=== PATIENT | female | born 1930 | race Caucasian/White ===

== ENCOUNTER 2017-01-10 08:46 | Inpatient (IN) | payer MEDICARE, OTHER ==
[~2017-01-10] VITALS: Ht 152.4 cm; Wt 68.3 kg
--- NOTE | ~2017-01-10 | HP ---
PATIENT'S NAME: ANASTASIYA MERIDA [facility] [place] AGE: 86 Y [address] ROOM: [place] [address] LOCATION: [facility] [place] ADMIT DATE: 01/10/2017 History & Physical DISCHARGE DATE: FAMILY PHYSICIAN: Jaymie Umanzor MD ATTENDING PHYSICIAN: Jaymie Umanzor DATE OF SERVICE: CHIEF COMPLAINT: Bright red blood per rectum. HISTORY OF PRESENT ILLNESS: Anastasiya is an 86-year-old female who has been otherwise healthy and in the last evening she just started feel "not right." She went to bed and then got up in the middle of the night and went to the bathroom and turned on the light and saw that it was pure blood. She denies any chest pain, shortness of breath, dizziness, lightheadedness, or near-syncope. She has not had anything like this before. She denies any unintentional weight loss, loss of appetite, night sweats, or malaise. She has had a colonoscopy, but it has been at least 15 years ago. PAST MEDICAL HISTORY: Operations include cataract surgery x2, right total hip arthroplasty, left total knee arthroplasty, and a fractured left shoulder. CURRENT MEDICATIONS: 1. Benazepril 20 mg daily. 2. Hydrochlorothiazide 25 mg daily. 3. Lovastatin 40 mg daily. 4. Aspirin 325 mg daily. 5. Ranitidine 150 mg at h.s. p.r.n. ALLERGIES: AMOXICILLIN AND THEN FLUVASTATIN IS ALSO LISTED. FAMILY HISTORY: Noncontributory. SOCIAL HISTORY: Nonsmoker, nondrinker. She lives independently. Her address is [place]. 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 She eats well and is active. REVIEW OF SYSTEMS: GENERAL: Negative. PATIENT'S NAME: ANASTASIYA MERIDA [facility] [place] AGE: 86 Y [address] ROOM: [place] [address] LOCATION: [facility] [place] ADMIT DATE: 01/10/2017 History & Physical DISCHARGE DATE: FAMILY PHYSICIAN: Jaymie Umanzor MD ATTENDING PHYSICIAN: Jaymie Umanzor ENT: She wears glasses. CARDIOVASCULAR: Negative. No chest pain or shortness of breath. RESPIRATORY: Negative. GI: See HPI. : Negative. MUSCULOSKELETAL: Negative. PSYCH: Negative. DERM: Negative. NEURO: Negative. PHYSICAL EXAMINATION: GENERAL: Anastasiya is a well-developed, well-nourished, 86-year-old female. She is alert, oriented x3, coherent, and gives an excellent history. VITAL SIGNS: Stable. Her pupils are equal. Sclerae clear. NECK: Supple without masses. Oropharynx is normal. Mucous membranes are moist. HEART: Regular rate and rhythm with a grade 2/6 systolic flow murmur. LUNGS: Richards are clear throughout. ABDOMEN: Soft. No organomegaly, masses, or tenderness. EXTREMITIES: Reveal just trace peripheral edema on the left. SKIN: Intact. LABORATORY DATA: Her CBC is normal. Chemistry panel shows an elevated BUN and creatinine of 1.2. Lactate is elevated. Hemoccult is positive. ASSESSMENT: 1. Acute lower gastrointestinal bleed. 2. Hypertension. 3. Hyperlipidemia. 4. Mildly chronic kidney disease. PLANS: She is being admitted as an inpatient. We will watch her hemoglobin every 6 hours and transfuse as needed. I did discuss risks and benefits of transfusion should she need that. GI has been consulted. She is going to start her colonoscopy prep this evening and have that done tomorrow morning. Prognosis depends upon etiology. She did ask code status and she wishes to be a full code at this time. I will continue to follow her. JAYMIE UMANZOR MD PATIENT'S NAME: ANASTASIYA MERIDA [facility] [place] AGE: 86 Y [address] ROOM: [place] [address] LOCATION: [facility] [place] ADMIT DATE: 01/10/2017 History & Physical DISCHARGE DATE: FAMILY PHYSICIAN: Jaymie Umanzor MD ATTENDING PHYSICIAN: Jaymie Umanzor/noman /[id number] D: 328 T: 820 HISTORY & PHYSICAL
--- NOTE | ~2017-01-10 | DS ---
PATIENT'S NAME: ANASTASIYA MERIDA [facility] AGE: 86 Y [address] ROOM: [address] [place], [place] [address] LOCATION: [facility] [place] ADMIT DATE: 01/10/2017 Discharge Summary DISCHARGE DATE: 01/13/2017 FAMILY PHYSICIAN: Gavi Umanzor MD ATTENDING PHYSICIAN: Gavi Umanzor PRINCIPAL DIAGNOSES: 1. Acute lower gastrointestinal bleed. 2. Marked ulcerative colitis. 3. Mild anemia due to gastrointestinal bleed. 4. Hypertension. 5. Chronic renal insufficiency. SUMMARY: Anastasiya is an 86-year-old female who is admitted with an active lower GI bleed. See the H and P. Her initial hemoglobin was fine. It was followed closely every 6 hours. GI consult was performed and she underwent a colonoscopy prep the evening of 01/10/2017 and the morning of 01/11/2017 and underwent colonoscopy. This showed marked amount of inflammation, erythema, swelling, and friability along the colon. Biopsies were taken and are pending. A C. diff test was negative. 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 Calcifications in the proximal aspect of both right and left single renal arteries. 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 Also, noted was a consolidation at the left lower lung. Her hemoglobin was stable, her potassium was low after hydration, and then that was replaced orally. Her potassium at the time of dismissal is excellent. Needed to reinstitute her blood pressure meds as her blood pressure did climb throughout her hospital stay so she is back on all of her home meds. Delzicol 800 mg t.i.d. was initiated by the military pay clerk. She is feeling markedly better. She is able to eat and drink, has a good appetite, is up and around safely, and has had no further bloody stools. At this time, she is feeling much better and is ready to go home. DISMISSAL: Anastasiya is dismissed on 01/13/2017 in improved condition. Her diet will be bland. Activity will be as tolerated. She is to use a wheeled walker. Family is going to keep an extra close eye on her. DISMISSAL MEDICATIONS: 1. Delzicol 800 mg t.i.d. either 1 hour before or 2 hours after meals. 2. HydroDIURIL 25 mg daily. 3. Lotensin 20 mg daily. 4. Mevacor 20 mg daily. 5. Ranitidine 150 mg daily p.r.n. 6. We will have her avoid antiinflammatory medications and follow up with me PATIENT'S NAME: ANASTASIYA MERIDA [facility] AGE: 86 Y [address] ROOM: [place] [address] LOCATION: [facility] [place] ADMIT DATE: 01/10/2017 Discharge Summary DISCHARGE DATE: 01/13/2017 FAMILY PHYSICIAN: Gavi Umanzor MD ATTENDING PHYSICIAN: Gavi Umanzor on 01/29/[address] Cochran per his recommendations. PROGNOSIS: Good. MD ALLYSSA HI/modl /[id number] d: 01/14/17511 t: 01/15/17 0821, DISCHARGE SUMMARY
--- NOTE | ~2017-01-10 | ER ---
PATIENT'S NAME: SYD MERIDA [facility] AGE: 86 Y [address] ROOM: [place] [address] LOCATION: [facility] [place] ADMIT DATE: 01/10/2017 ER/Outpatient Report DISCHARGE DATE: FAMILY PHYSICIAN: Gavi Umanzor MD ATTENDING PHYSICIAN: Gavi Umanzor CHIEF COMPLAINT: Bright red blood per rectum. HISTORY OF PRESENT ILLNESS: The patient states that since last night, she has had several grossly bloody bowel movements that became just more blood this morning. There are no other findings for her today. She otherwise feels relatively okay. She does have a history of high blood pressure. The patient does have some diffuse abdominal discomfort centered in the lower abdomen. No other acute findings. She has not taken anything for this. She denies taking any blood thinners. The patient notes that she has not ever had a colonoscopy at the age of 86. PAST MEDICAL HISTORY: Documented on the record and reviewed by me. SOCIAL HISTORY: Documented on the record and reviewed by me. MEDICATIONS: Documented on the record and reviewed by me. ALLERGIES: DOCUMENTED ON THE RECORD AND REVIEWED BY ME. REVIEW OF SYSTEMS: All systems were reviewed and negative except as noted in the HPI. PHYSICAL EXAMINATION: VITAL SIGNS: Blood pressure 176/86, pulse is 95, respiratory rate is 20, and SpO2 is 97% on room air. GENERAL: Age-appropriate female, lying on the exam table, in no acute distress or pain. NEUROLOGIC: Awake and alert. GCS 15. No focal deficits or asymmetry. HEENT: Normocephalic, atraumatic. Eyes are PERRL. Oropharynx is clear and moist. No erythema or exudates. NECK: Supple. Trachea is midline. CHEST: Heart has a regular rate and rhythm with no obvious murmurs, but borderline tachycardia. The lungs are clear to auscultation bilaterally grossly. The patient does have a rattle on the left chest on expiration that PATIENT'S NAME: SYD MERIDA [facility] AGE: 86 Y [address] ROOM: [place] [address] LOCATION: [facility] [place] ADMIT DATE: 01/10/2017 ER/Outpatient Report DISCHARGE DATE: FAMILY PHYSICIAN: Gavi Umanzor MD ATTENDING PHYSICIAN: Noé,Gavi M is intermittent and sounds like a mucus plugging issue. BACK: Nontender to palpation throughout. No CVA tenderness. ABDOMEN: Soft, with no rebound or guarding. There is some mild tenderness diffusely along the lower abdomen, most prominent on the left side. RECTAL: Marked external hemorrhoids, with no active bleeding. The stool is scant in the rectal vault. The exam is grossly bloody. No obvious pain or masses. LABS AND X-RAYS: No imaging was obtained for this patient. Labs are notable for the following: Fecal occult blood test is positive. Blood type O positive with no antibodies. Sodium is 138, potassium 4.0, chloride is 104, CO2 is 24, BUN is 29, creatinine is 1.2, and GFR is 42. LFTs are grossly normal. WBC is 10.3, hemoglobin 15.7, and platelets of 286. INR is 1.0. Serum lactate is 2.9. IMPRESSION: Acute lower gastrointestinal bleeding. EMERGENCY DEPARTMENT COURSE: The patient was evaluated as above. She had mild azotemia with an elevated serum lactate. Her presentation is not consistent with ischemic bowel; however, she may be slightly hypovolemic. She is borderline tachycardic. She was given normal saline to help with that, which did improve her heart rate. She was also given Protonix and 2 units of blood were typed and screened for her. She remained otherwise stable in the emergency department. It was my opinion that she did not need emergent scope as she has not had any evidence of active bleeding here in the emergency department. For that reason, I will admit her to Dr. Umanzor, primary care provider, for further evaluation and treatment in the hospital. I did speak with the nurse of Dr. Cochran, hard tile setter apprentice, to make him aware of the patient, and he will need to see her at some point. All questions were answered, and the patient was taken to the floor in stable condition. MD BOB METCALF/noman /[id number] d: 01/11/17 1045 t: 03/13/17 1801, OUTPATIENT REPORT
--- NOTE | ~2017-01-10 | CON ---
PATIENT'S NAME: SYD MERIDA [facility] AGE: 86 Y [address] ROOM: [place] [address] LOCATION: [facility] [place] ADMIT DATE: 01/10/2017 Consultation DISCHARGE DATE: FAMILY PHYSICIAN: Gavi Umanzor MD ATTENDING PHYSICIAN: Gavi Umanzor DATE OF CONSULTATION: 01/10/2017 HISTORY OF PRESENT ILLNESS: This is a very pleasant, elderly lady, who was admitted through the emergency room today with the onset of bright red blood per rectum clinical dietetic technician. She said that she had several episodes of passing bright red blood and clots and subsequently brought to the emergency room where she was evaluated and admitted. She denies any prior history of lower GI bleeding. Denies any history of melena or hematemesis. Nausea or vomiting. She denies any history of anticoagulants intake. She takes 1 aspirin a day. She was feeling weak after several episodes of upper GI bleeding. However, she did not pass out. There was no associated chest pain or sweating. HOME MEDICATIONS: Include: 1. omepreazole 20 mg. 2. Hydrochlorothiazide 25 mg. 3. Lovastatin 40 mg daily which was stopped in the emergency room. PAST MEDICAL HISTORY: Significant for hypertension and hyperlipidemia. PAST SURGICAL HISTORY: She had colonoscopy in the past several years ago and was told that it was normal. Past surgical history also includes sprain in the shoulder and with a rotator cuff repair, fixation of the scapula and acromion. ALLERGIES: SHE DENIES ANY ALLERGIES TO MEDICATIONS. SOCIAL HISTORY: Denies smoking and drinking. PHYSICAL EXAMINATION: GENERAL APPEARANCE: Examination reveals an elderly lady, not in acute discomfort. VITAL SIGNS: Show her blood pressure is 145/89, temperature is 98.3 degree Fahrenheit, and pulse is 111 per minute on admission. HEENT: Head; normocephalic and atraumatic. PATIENT'S NAME: SYD MERIDA [facility] AGE: 86 Y [address] ROOM: [place] [address] LOCATION: [facility] [place] ADMIT DATE: 01/10/2017 Consultation DISCHARGE DATE: FAMILY PHYSICIAN: Gavi Umanzor MD ATTENDING PHYSICIAN: Gavi Umanzor NECK: Supple. No lymphadenopathy. CHEST: Clear to palpation, percussion, and auscultation. CARDIAC: Both heart sounds are normal. No S3. No murmur. ABDOMEN: Soft, it is nontender. There is no hepatosplenomegaly. No ascites. MUSCULOSKELETAL: She moves all extremities. All joints movements are equal bilaterally. NEUROLOGICAL: Cranial nerves 2 through 12 intact. Motor and sensory system intact. LABORATORY DATA: Her hemoglobin was 15 g on admission in the emergency room and repeated on the floor was 13.2 g, and platelets were 286,000. PT is 10.6 and INR is 1.0. Lactate was 2.9, glucose 112, BUN 29, and creatinine 1.2. LFTs were normal. ASSESSMENT: This elderly lady has lower gastrointestinal bleeding. Possibilities of which include diverticular bleeding, hemorrhoidal bleeding, and bleeding from telangiectasia. I do not think she has source from the upper gastrointestinal tract. RECOMMENDATIONS: To proceed with colonoscopy which I have planned for tomorrow. Do appropriate treatment such as cauterization of telangiectasia, polypectomy or hemorrhoidal band ligation. The risks and benefits were explained to the patient and the family and they all agree with this plan of colonoscopy tomorrow. We appreciate sharing care of this patient. MD GALLO HINSON/noman /[id number] CC: Gavi Umanzor MD d: 01/10/17 2311 t: 01/11/17 1143, CONSULTATION REPORT
[2017-01-10 09:25] LABS: BASOPHIL % 0.3 %; EOSINOPHIL % 0.3 %; IMMATURE GRANULOCYTE % 0.3 %; LYMPHOCYTE # 1.5 K/uL (0.8-4.0); LYMPHOCYTE % 14.9 %; MCH 27.4 pg (27.0-34.0); MCHC 32.6 gm/dL (32.0-36.5); MCV 84.1 fl (83.0-98.0); MONOCYTE # 0.5 K/uL (0.0-1.0); MONOCYTE % 5.1 %; MPV 8.9 fl (9.4-12.4); NEUTROPHIL # (ANC) 8.2 K/uL (1.8-7.8); NEUTROPHIL % 79.1 %; NRBC % 0 /100WBC (0-0.00); PLATELET COUNT 286 K/uL (150-450); RBC 5.47 M/uL (3.00-5.00); RDW-CV 14.3 % (11.9-14.6); WBC 10.3 K/uL (4.0-11.0)
[2017-01-10 09:37] LABS: ALBUMIN 3.9 gm/dL (3.5-5.0); CALCIUM 9.3 mg/dL (8.5-10.5); CREATININE 1.2 mg/dL (0.5-1.1); TOTAL BILIRUBIN 0.6 mg/dL (0.0-1.5); TOTAL PROTEIN 7.9 g/dL (6.0-8.4)
[2017-01-10 09:38] LABS: PROTIME 10.6 SECONDS (9.6-11.1); PTT 27 SECONDS (25-32)
--- NOTE | 2017-01-10 12:01 | NUR ---
pt is 86 y/o female admit for rectal bleeding for . Pt alert and oriented x3. Allergy to amoxicillin. Hx htn,hypercholest. Pt states she had some bright red blood after a stool last night. pt denies hemorrhoids. Resides at home with her son. Pt came through ED. Family with her. Walks with a cane.
[2017-01-10] MEDS ORDERED: LOTENSIN20 MG PO (13:21)
[2017-01-10] MEDS ORDERED: ASPIRIN325 MG PO (13:21)
[2017-01-10] MEDS ORDERED: HYDRODIURIL25 MG PO (13:21)
[2017-01-10] MEDS ORDERED: LOVASTATIN40 MG PO (13:21)
[2017-01-10] MEDS ORDERED: ACID REDUCER 1150 MG PO (13:22)
--- NOTE | 2017-01-10 16:06 | NUR ---
Significant Event: Patient is alert and oriented x3. VSS and on RA. Has had 2 bloody stools since being here. Up with 1PA and switched to the walker. Needs reminders to wait for the nurse. Bed alarm. IV to the L)wrist, fluids infusing. Dr. Umanzor to see after clinic and GI to see yet. NPO. Some of the home meds are on hold. HGB every 6 hours- next one is at 1930. When she came in her HGB was 15 and the check was 13.2 around 1330. Cooperative with cares. Denies pain or nausea.
--- NOTE | 2017-01-11 07:27 | NUR ---
SIGNIFICANT EVENT: Patient alert & oriented. SuPrep at 1800 and again at 0300. BM x8, initial 6 were bloody - last 2 were more clear. PIV to L) wrist is infusing NS at 150. NPO. 1PA walker and gaitbelt. Hypertensive and tachycardic, called MD and gave Benazepril x1. Zofran also ordered but not given. Colonoscopy scheduled for today. NPO since admission, sips with BP med per MD approval. Pleasant and cooperative with cares.
[2017-01-11 14:20] LABS: ANION GAP 13.4 (10.0-19.0); CALCIUM 8.4 mg/dL (8.5-10.5); CREATININE 0.9 mg/dL (0.5-1.1); POTASSIUM 3.4 mMol/L (3.7-5.1)
--- NOTE | 2017-01-11 15:33 | NUR ---
Significant Event: Patient is alert and oriented x3. Blood pressure this morning was in the 180's. notified and ordered to start on her home med. Given. Patient had colonoscopy this AM. Per report it is bad colitis, they removed a polyp and took a few samples for biopsy. Denies pain. Just sent down a stool for C.Diff. Tolerating a soft diet at this time. Still has blood in her stools. Hemoglobin every 6 hours. CTA completed today. Has ambulated in the mcintyre times 1. Started on asacol. Up with SBA and walker. No nausea or vomiting. Cooperative with cares. Family at the bedside. Follow up: Ambulation
[2017-01-11 18:14] LABS: HEMATOCRIT 38.8 % (30.0-46.0); HEMOGLOBIN 12.8 g/dL (10.0-15.0)
[2017-01-12 00:26] LABS: HEMATOCRIT 35.2 % (30.0-46.0); HEMOGLOBIN 11.6 g/dL (10.0-15.0)
--- NOTE | 2017-01-12 04:01 | NUR ---
Significant Event: Patient rested throughout the night, having a little bloody discharge at start of shift. Denies pain, slightly hypertensive with B/P in the 140-150's. Pleasant and cooperative with cares. HBG at 1800 was 12.8 at midnight it was 11.6. Follow up: Continue to monitor.
[2017-01-12 06:05] LABS: HEMATOCRIT 35.2 % (30.0-46.0); HEMOGLOBIN 11.6 g/dL (10.0-15.0)
[2017-01-12 12:04] LABS: HEMATOCRIT 36.9 % (30.0-46.0); HEMOGLOBIN 11.9 g/dL (10.0-15.0)
--- NOTE | 2017-01-12 16:37 | NUR ---
Significant Event: Patient is alert and oriented x3. VSS- BP elevated this morning, BP meds given and restarted- lowered. Tolerating a soft diet. D/C'd the hgb every 6H. Complaints to family this morning that she had double vision for a little bit. States she does not have it now, neuro checks intact. Told the patient to notify me if it happens again. L)Wrist IV, SL. Denies pain or nausea. Up in chair most of the day. Cooperative with cares. 1PA with walker. Follow Up: Home tomorrow???
--- NOTE | 2017-01-13 04:33 | NUR ---
Significant Event: Patient denies pain, alert and orientated. Up with one assist to bathroom. Hypertensive at times, but was restarted on her blood pressure medications yesterday. Waiting on bx results. Follow up: Continue to monitor.
[2017-01-13 05:10] LABS: HEMATOCRIT 38.6 % (30.0-46.0); HEMOGLOBIN 12.6 g/dL (10.0-15.0)
[2017-01-13 05:27] LABS: ANION GAP 11.1 (10.0-19.0); POTASSIUM 4.1 mMol/L (3.7-5.1)
[2017-01-13] MEDS ORDERED: DELZICOL400 M1 PO (14:18)
--- NOTE | 2017-01-13 14:30 | NUR ---
D: Orders received for the patient to be discharged to home today. I: Dismissal instructions were prepared and reviewed with the patient and her family virtually. The following information was discussed including [employer] teaching sheets provided: What is Ulcerative colitis, Management of ulcerative colitis-Lifestyle, Discharge instructions for ulcerative colitis, Mesalamine, Discharge instructions for eating a soft diet, and Preventing DVT. Reviewed follow up appointment with Dr. Umanzor and new prescription called into [facility]. R: The patient and her family both verbalized understanding of the dismissal education at the time of teaching with no further questions. P: The above information was shared with the primary nurse and the charge nurse that the dismissal education was completed. The patient is ready for discharge to the front door via wheel chair by nursing staff.
--- NOTE | 2017-01-13 15:00 | NUR ---
Discharge instructions given to patient and family by Ada Galo RN Virtual Nurse. Patient dismissed per wheelchair to the front lobby.
== END 2017-01-13 15:00 | disposition disaster alternative care site (69) | DRG 378 ==
LOC: GMED 08:46 → GMSU 11:44
PROVIDERS: Emergency Medicine; ADMIT Family Medicine
PROC: 0DBP8ZZ Excision of Rectum, Via Natural or Artificial Opening Endoscopic (ICD-10-PCS; principal; 2017-01-11)
PROC: 0DBL8ZX Excision of Transverse Colon, Via Natural or Artificial Opening Endoscopic, Diagnostic (ICD-10-PCS; principal; 2017-01-11)
PROC: 0DBN8ZX Excision of Sigmoid Colon, Via Natural or Artificial Opening Endoscopic, Diagnostic (ICD-10-PCS; principal; 2017-01-11)
PROC: 0DBM8ZX Excision of Descending Colon, Via Natural or Artificial Opening Endoscopic, Diagnostic (ICD-10-PCS; principal; 2017-01-11)
DX: K92.2 Gastrointestinal hemorrhage, unspecified (principal); D62 Acute posthemorrhagic anemia; K51.90 Ulcerative colitis, unspecified, without complications; I12.9 Hypertensive chronic kidney disease with stage 1 through stage 4 chronic kidney disease, or unspecified chronic kidney disease; N18.9 Chronic kidney disease, unspecified; E78.5 Hyperlipidemia, unspecified; K62.1 Rectal polyp; E87.6 Hypokalemia; K44.9 Diaphragmatic hernia without obstruction or gangrene; Z79.82 Long term (current) use of aspirin
CPT/HCPCS: C9113; J7030; Q9967